=== PATIENT | female | born 1985 | race Caucasian/White ===

== ENCOUNTER 2022-10-29 14:06 | Emergency (ER) | payer BC, SELFPAY ==
[2022-10-29 14:14] VITALS: BP 147/80; PULSE 70; RESP 18; TEMP 37.1; O2SAT 100
--- NOTE | 2022-10-29 14:31 | ED.ABDPAIN ---
HPI - Abdominal Pain General Chief Complaint: Abdominal Pain Stated Complaint: Abdonimal Pain Time Seen by Provider: 10/29/22 14:31 Source: patient and RN notes reviewed Mode of arrival: ambulatory Limitations: no limitations History of Present Illness HPI narrative: 37-year-old female presenting for complaint of left lower abdominal cramping today. Pain wraps to the left lower back. She endorses she is on day 5 of her menstrual cycle which she attributed to the cramping, but states the pain was not relieved with ibuprofen today. She states the pain was up to 8/10. Associated with nausea and decreased appetite. She had 3 loose bowel movements today. Denies vomiting, hematochezia, melena, urinary complaints, Body aches, fevers or chills. denies sick contacts. Related Data Allergies Allergy/AdvReac Type Severity Reaction Status Date / Time No Known Allergies Allergy Verified 10/29/22 14:20 Review of Systems Review of Systems: CONSTITUTIONAL: Denies body aches, fever, chills ENT: Denies rhinorrhea, congestion CARDIOVASCULAR: Denies chest pain, palpitations, or edema. RESPIRATORY: Denies cough or dyspnea. GASTROINTESTINAL: per HPI GENITOURINARY: Denies dysuria, hematuria, or CVA tenderness. SKIN: Denies rash, itching, or wounds. MUSCULOSKELETAL: Denies back pain, joint pain, or myalgia. NEUROLOGIC: Denies headache, numbness, tingling, or weakness. All systems reviewed & are unremarkable except as noted in HPI and below PMFSH Comments At time of signature, I have reviewed and agree with nursing past medical, surgical, social and family history unless otherwise noted. Please see nursing chart for further information. There is no relevant family history pertinent to the presenting complaint Exam Narrative: GENERAL: Well-appearing, and in no acute distress. EYES: EOMI. Conjunctivae normal. ENT: Mucous membranes pink and moist. CHEST: Clear to auscultation. HEART: Regular rate and rhythm. No murmur appreciated. Normal peripheral pulses. ABDOMEN: abd soft, nondistended, normal active bowel sounds. Nontender abdomen; No guarding, rebound tenderness, asymmetry EXTREMITIES: Normal range of motion. No edema. SKIN: Warm, dry, no rash. Capillary refill normal. Normal skin turgor. NEURO: No focal deficits. Alert and oriented x3. PSYCH: Normal affect. Course Course Emergency Course: Patient is aware of diagnosis, understands and agrees to treatment plan. Anticipatory guidance given. Patient agrees to follow-up as directed and is aware of reasons to seek care at the emergency department. Portions of this record may have been created with voice recognition software Level of Care: Express Care Visit Vital Signs Vital signs: Vital Signs Temperature 98.8 F 10/29/22 14:14 Pulse Rate 70 10/29/22 14:14 Respiratory Rate 18 10/29/22 14:14 Blood Pressure 147/80 H 10/29/22 14:14 Pulse Oximetry 100 10/29/22 14:14 Oxygen Delivery Room Air 10/29/22 14:14 Temperature 98.8 F 10/29/22 14:14 Pulse Rate 70 10/29/22 14:14 Respiratory Rate 18 10/29/22 14:14 Blood Pressure 147/80 H 10/29/22 14:14 Pulse Oximetry 100 10/29/22 14:14 Oxygen Delivery Room Air 10/29/22 14:14 MDM - Abdominal Pain MDM Narrative Medical decision making narrative: Urine result reviewed with patient. Will send for culture and avoid empiric treatment due to current abdominal complaints. No evidence of pancreatitis, AAA, cholecystitis, choledocholithiasis, cholangitis, mesenteric ischemia, small bowel obstruction, diverticulitis, colitis, appendicitis, or pelvic etiology such as ovarian/testicular torsion, TOA, or ectopic . Patient has no history of peptic ulcer, H. pylori, chronic aspirin NSAID or corticosteroid use, chronic alcohol use, no history of inflammatory bowel disease, no history of active abdominal infection or malignancy. Patient has no history of hernia or intra-abdominal surgeries, pat
== END 2022-10-29 15:15 | disposition home or self-care (01) ==
PROVIDERS: Emergency Provider Nurse Practitioner Family; PCP Family Medicine
DX: R10.32 Left lower quadrant pain (principal)
CPT/HCPCS: 81003; 87086; 87088; 99213; G0463